=== PATIENT | female | born 1940 | race Hispanic/Latino ===

== ENCOUNTER 2023-03-09 05:53 | Observation (INO) | payer MEDICARE ==
[2023-03-07 14:00] VITALS: BP 100/52; PULSE 72; RESP 16
[2023-03-09] VITALS (25 sets, daily range): BP systolic 70–106; BP diastolic 40–75; PULSE 56–67; RESP 12–17; O2SAT 97–98
[~2023-03-09] VITALS: Ht 162.6 cm; Wt 47.6 kg
[~2023-03-09 05:53] MED LIST: APIX5TAB PO; ATOR40TA71 PO; BUSP5TAB3 PO; CHOL200026 PO; CYAN100022 SL; DONE10TA43 PO; HYDR-4068 PO; LEVO112C4 PO; LOPE2CAP PO; MEMA5TAB42 PO; METO-391 PO; PANT40TA54 PO; QUET50TA24 PO
[2023-03-09] MEDS ORDERED: PROPOFOL 10 MG/ML 20ML VIAL IV ONE (07:58)
[2023-03-09] MEDS ORDERED: GLYCOPYRROLATE 1 MG/5 ML SYRINGE ONE (08:12)
[2023-03-09 08:41] LABS: MEAN CORPUSCULAR HEMOGLOBIN 27.9 pg (27.0-33.0); MEAN CORPUSCULAR HGB CONC 30.7 g/dL (32.0-36.0); MEAN CORPUSCULAR VOLUME 90.9 fL (79-99); PLATELET COUNT (AUTO) 237 K/uL (130-400); RED BLOOD CELL COUNT(AUTO) 1.97 MIL/uL (4.00-5.50); RED CELL DISTRIBUTION WIDTH 14.9 % (11.0-15.5); WHITE BLOOD COUNT (AUTO) 6.5 K/uL (4.8-10.8)
[2023-03-09 09:06] LABS: HEMATOCRIT 17.9 % (36-48)
[2023-03-09 09:44] LABS: EOSINOPHILS % (MANUAL) 1 % (1-6); LYMPHOCYTES % (MANUAL) 19 % (22-44); MAN.DIFF COMMENT-IMPRESSION MANUAL DIFFERENTIAL; MONOCYTES % (MANUAL) 2 % (2-9); PLATELET MORPHOLOGY COMMENT ADEQUATE; SEGMENTED NEUTROPHILS % 78 % (40-70); TOTAL CELLS COUNTED 100
[2023-03-09] MEDS ORDERED: ONDANSETRON 4MG INJ IVP PRN (11:30)
[2023-03-09] MEDS ORDERED: ACETAMINOPHEN 325 MG TAB PO PRN (11:30)
[2023-03-09 16:04] LABS: HEMATOCRIT 25.5 % (36-48)
[2023-03-09 21:48] LABS: RETICULOCYTE % (AUTO) 2.63 % (0.42-2.23)
[2023-03-09 22:19] LABS: ALBUMIN 2.2 g/dL (3.5-5.0); BILIRUBIN,TOTAL 0.5 mg/dL (0.2-1.0); CREATININE 0.7 mg/dL (0.5-1.5); POTASSIUM 3.6 mmol/L (3.5-5.1); TOTAL PROTEIN, SERUM 4.9 g/dL (6.0-8.3)
[2023-03-09 22:24] LABS: % IRON SATURATION 5.5 % (22-44)
[2023-03-10 04:20] VITALS: BP 94/46; PULSE 56; RESP 14
[2023-03-10 05:21] LABS: BASOPHILS # (AUTO) 0.05 K/uL (0.00-0.20); BASOPHILS % (AUTO) 0.6 % (0.0-5.0); EOSINOPHILS # (AUTO) 0.15 K/uL (0.00-0.70); EOSINOPHILS % (AUTO) 1.7 % (0.0-8.0); HEMATOCRIT 25.3 % (36-48); IMMATURE GRANULOCYTE ABSOLUTE 0.07 K/uL (0-1); LYMPHOCYTES # (AUTO) 1.7 K/uL (1.0-4.8); LYMPHOCYTES % (AUTO) 18.2 % (21.0-51.0); MEAN CORPUSCULAR HEMOGLOBIN 27.8 pg (27.0-33.0); MEAN CORPUSCULAR HGB CONC 30.4 g/dL (32.0-36.0); MEAN CORPUSCULAR VOLUME 91.3 fL (79-99); MONOCYTES # (AUTO) 0.6 K/uL (0.1-1.0); NEUTROPHILS # (AUTO) 6.5 K/uL (1.8-7.7); NEUTROPHILS % (AUTO) 71.7 % (40.0-77.0); PLATELET COUNT (AUTO) 253 K/uL (130-400); RED BLOOD CELL COUNT(AUTO) 2.77 MIL/uL (4.00-5.50); RED CELL DISTRIBUTION WIDTH 15.3 % (11.0-15.5); WHITE BLOOD COUNT (AUTO) 9.1 K/uL (4.8-10.8)
[2023-03-10 05:45] LABS: ALBUMIN 2.3 g/dL (3.5-5.0); BILIRUBIN,TOTAL 0.6 mg/dL (0.2-1.0); CREATININE 0.6 mg/dL (0.5-1.5); POTASSIUM 3.4 mmol/L (3.5-5.1)
[2023-03-10] MEDS ORDERED: LEVOTHYROXINE 112 MCG TABLET PO SCH (06:30)
[2023-03-10] MEDS ORDERED: KCL 20 MEQ ERTAB PO ONE (07:00)
[2023-03-10 07:30] VITALS: O2SAT 96
[2023-03-10] MEDS ORDERED: NON-FORMULARY MEDICATION 1 EACH (Levothyroxine Sodium (Levothyroxine) 112 MCG) PO SCH (07:30)
[2023-03-10 08:00] VITALS: BP 107/57; PULSE 69; RESP 18
[2023-03-10] MEDS: BUSPIRONE HCL 5 MG TABLET PO SCH ×2 (08:43→13:38)
[2023-03-10] MEDS ORDERED: PANTOPRAZOLE 40 MG TAB DR PO SCH (09:00)
[2023-03-10] MEDS ORDERED: QUETIAPINE FUMARATE 25 MG TAB PO SCH ×2 (09:00→21:00)
[2023-03-10] MEDS ORDERED: Vitamin D3 50 MCG PO SCH (09:00)
[2023-03-10] MEDS ORDERED: NON-FORMULARY MEDICATION 1 EACH (Cyanocobalamin (Vitamin B-12) (Vitamin B-12) 1,000 MCG) SL SCH (09:00)
[2023-03-10] MEDS ORDERED: QUETIAPINE FUMARATE 25 MG PO SCH (09:00)
[2023-03-10] MEDS ORDERED: CYANOCOBALAMIN (VITAMIN B-12) 1,000 MCG TABLET PO SCH (09:00)
[2023-03-10] MEDS ORDERED: MEMANTINE HCL 5 MG TABLET PO SCH (09:00)
[2023-03-10] MEDS ORDERED: LIDOCAINE 4% ADH..PATCH TP ONE (11:30)
[2023-03-10] MEDS ORDERED: CHOL200026 PO (11:32)
[2023-03-10 12:00] VITALS: BP 103/54; PULSE 76; RESP 22
[2023-03-10] MEDS ORDERED: COMPOUND IV MISC 1 EACH IVSOLN MISC PRN (12:00)
[2023-03-10 16:00] VITALS: BP 105/56; PULSE 63; RESP 18
[2023-03-10] MEDS ORDERED: IRON SUCROSE COMPLEX 300 MG in 0.9% NACL 250ML 250 ML IV ONE (21:00)
[2023-03-10] MEDS ORDERED: QUETIAPINE FUMARATE 75 MG PO SCH (21:00)
[2023-03-10] MEDS ORDERED: NON-FORMULARY MEDICATION 1 EACH (Donepezil HCl 10 MG) PO SCH (21:00)
[2023-03-10] MEDS ORDERED: DONEPEZIL HCL 5 MG TAB PO SCH (21:00)
[2023-03-10] MEDS ORDERED: ATORVASTATIN 40 MG TABLET PO SCH (21:00)
== END 2023-03-10 18:55 | disposition home or self-care (01) ==
LOC: ENDO 05:53 → DAH 05:53 → ENDO 05:54 → DAHIP 05:54 → INTOOBSV 05:54 → 3AH 17:05
PROVIDERS: ADMIT Internal Medicine; ATTEND Internal Medicine
DX: K55.21 Angiodysplasia of colon with hemorrhage (principal); K63.5 Polyp of colon; K57.30 Diverticulosis of large intestine without perforation or abscess without bleeding; D50.0 Iron deficiency anemia secondary to blood loss (chronic); K31.84 Gastroparesis; R93.3 Abnormal findings on diagnostic imaging of other parts of digestive tract; I10 Essential (primary) hypertension; E78.5 Hyperlipidemia, unspecified; E53.8 Deficiency of other specified B group vitamins; D69.6 Thrombocytopenia, unspecified; K76.0 Fatty (change of) liver, not elsewhere classified; E87.6 Hypokalemia; E43 Unspecified severe protein-calorie malnutrition; F03.90 Unspecified dementia, unspecified severity, without behavioral disturbance, psychotic disturbance, mood disturbance, and anxiety; Z79.899 Other long term (current) drug therapy
CPT/HCPCS: 36430; 80053 ×2; 82728 ×2; 85025 ×2; 85014; 85018; 86850; 86900; 86901; 86923; 82607; 36415 ×2; 45382; 45385; 96365; 96366; 97161; 97039; 97116; P9016; J3490; J2704; A4620; A4215 ×2; A4223; A7002; A4222; A4221; A4663; A4216; J7030; A4606; G0378 ×4; J1756; J7050; 85007

== ENCOUNTER → 2023-07-28 | Outpatient (CLI) | payer MEDICARE ==
[~2023-07-28] MED LIST changes: -APIX5TAB PO; +IOHEXOL 350 MG/ML 100ML INFUS..BTL IV ONE
== END | disposition home or self-care (01) ==
LOC: RAH 08:56
PROVIDERS: ATTEND Surgery Surgical Oncology
DX: N28.1 Cyst of kidney, acquired (principal); C22.9 Malignant neoplasm of liver, not specified as primary or secondary
CPT/HCPCS: 74178; Q9967